=== PATIENT | female | born 1980 | race Caucasian/White ===

== ENCOUNTER 2018-03-06 07:26 | Inpatient (IN) | payer MEDICAID ==
[~2018-03-06] VITALS: Ht 144.8 cm; Wt 83.4 kg
[2018-03-06 07:56] LABS: BASOPHILS % (AUTO) 0.5 % (0.0-2.0); EOSINOPHILS % (AUTO) 0.7 % (1.0-6.0); HEMATOCRIT 36.5 % (36-46); HEMOGLOBIN 12.5 g/dL (12.0-16.0); LYMPHOCYTES # (AUTO) 1.8 K/uL (1.0-4.8); LYMPHOCYTES % (AUTO) 22.5 % (22.0-44.0); MEAN CORPUSCULAR HEMOGLOBIN 28.4 pg (26.0-34.0); MEAN CORPUSCULAR HGB CONC 34.2 G/dL (31.0-37.0); MEAN CORPUSCULAR VOLUME 83 fL (80-100); MONOCYTES # (AUTO) 0.3 K/uL (0.1-1.0); MONOCYTES % (AUTO) 4.3 % (2.0-9.0); NEUTROPHILS # (AUTO) 5.7 K/uL (1.8-7.7); PLATELET COUNT (AUTO) 253 K/uL (150-450); RED BLOOD CELL COUNT(AUTO) 4.39 MIL/uL (4.00-5.20); RED CELL DISTRIBUTION WIDTH 14.2 % (11.5-14.5)
[2018-03-06 08:12] LABS: ANION GAP 10 mmol/L (8-16); CALCIUM, TOTAL 9.2 mg/dL (8.8-10.5); CARBON DIOXIDE 25 mmol/L (22-29); CHLORIDE 102 mmol/L (98-107); CREATININE 0.78 mg/dL (0.60-1.30); GLOMERULAR FILTR. RATE CALC > 60 mL/min (>60); GLUCOSE,RANDOM 112 mg/dL (70-110); POTASSIUM 3.7 mmol/L (3.5-5.1); SODIUM SERUM 137 mmol/L (136-145); UREA NITROGEN, BLOOD 9 mg/dL (7-18)
[2018-03-06 08:23] LABS: SALICYLATE 1.9 mg/dL (2.8-20.0)
[2018-03-06 08:25] LABS: ALANINE AMINOTRANSFERASE 32 U/L (12-78); ALBUMIN 3.5 g/dL (3.4-5.0); ALKALINE PHOSPHATASE 112 U/L (46-116); ASPARTATE AMINOTRANSFERASE 20 U/L (15-37); BILIRUBIN,TOTAL 0.4 mg/dL (0.1-1.0); TOTAL PROTEIN, SERUM 7.5 g/dL (6.4-8.2)
[2018-03-06 08:38] LABS: ACETAMINOPHEN 9 mcg/mL (10-30)
[2018-03-06] MEDS ORDERED: ACETAMINOPHEN 500 MG TABLET PO ONE (09:45)
[2018-03-06 09:52] LABS: AMPHET/METH SCREEN,URINE NEGATIVE (NEGATIVE); BARBITURATE SCREEN, URINE NEGATIVE (NEGATIVE); BENZODIAZEPINES SCREEN,URINE NEGATIVE (NEGATIVE); CANNABINOID SCREEN,URINE NEGATIVE (NEGATIVE); COCAINE SCREEN,URINE NEGATIVE (NEGATIVE); METHADONE SCREEN, URINE NEGATIVE (NEGATIVE); OPIATE SCREEN,URINE NEGATIVE (NEGATIVE)
[2018-03-06 09:55] LABS: PHENCYCLIDINE SCREEN,URINE NEGATIVE (NEGATIVE)
[2018-03-06] MEDS ORDERED: ZOLPIDEM TARTRATE 10 MG TABLET PO PRN (11:30)
[2018-03-06] MEDS ORDERED: LORazepam 2 MG TABLET PO PRN (11:30)
[2018-03-06] MEDS ORDERED: HALOPERIDOL 5 MG TABLET PO PRN (11:30)
[2018-03-06 11:31] VITALS: BP 104/59
[2018-03-06 12:11] LABS: HCG,QUANTITATIVE < 1 mIU/mL (0-6)
[2018-03-06] MEDS ORDERED: IBUPROFEN 600 MG TABLET PO PRN (15:15)
[2018-03-06] MEDS ORDERED: LOPERAMIDE HCL 2 MG CAPSULE PO PRN (15:15)
[2018-03-06] MEDS ORDERED: MAG HYDROX/AL HYDROX/SIMETH ES 30 ML SUSPENSION UDCUP PO PRN (15:15)
[2018-03-06] MEDS ORDERED: MAGNESIUM HYDROXIDE SUSPENSION 30 ML UDCUP PO PRN (15:15)
[2018-03-06] MEDS ORDERED: ACETAMINOPHEN 325 MG TABLET PO PRN (15:15)
[2018-03-06] MEDS ORDERED: PETROLATUM,WHITE 71 GM JELLY TP PRN (15:15)
[2018-03-06] MEDS ORDERED: BACITRACIN 28.4 GM OINTMENT TP PRN (15:15)
[2018-03-06] MEDS ORDERED: CloNIDine HCL 0.1 MG TABLET PO PRN (15:15)
[2018-03-06] MEDS ORDERED: BENZOCAINE/MENTHOL LOZENGE MM PRN (15:15)
[2018-03-06] MEDS ORDERED: ALBUTEROL SULFATE HFA 90 MCG/PUFF 8 GM INHALER IH PRN (15:15)
[2018-03-06] MEDS ORDERED: ONDANSETRON HCL 4 MG TABLET PO PRN (15:15)
[2018-03-06 19:03] VITALS: BP 112/70
[2018-03-06 20:48] VITALS: BP 110/63
[2018-03-07 07:09] VITALS: BP 102/73
[2018-03-07 08:28] VITALS: BP 109/68
[2018-03-07 08:59] LABS: CHOL/HDL RATIO 4.8 (3.9-5.7); FREE T4 (FREE THYROXINE) 0.91 ng/dL (0.76-1.46); THYROID STIMULATING HORMONE 1.07 uIU/mL (0.36-3.74)
[2018-03-07] MEDS ORDERED: DOCUSATE SODIUM 100 MG CAPSULE PO SCH (09:00)
== END 2018-03-07 15:25 | disposition home or self-care (01) | DRG 751 ==
LOC: EMS 07:27 → AHU 10:54 → B2S 18:00
DX: F33.3 Major depressive disorder, recurrent, severe with psychotic symptoms (principal); R45.851 Suicidal ideations; T50.902A Poisoning by unspecified drugs, medicaments and biological substances, intentional self-harm, initial encounter; E66.9 Obesity, unspecified; F17.200 Nicotine dependence, unspecified, uncomplicated; F41.9 Anxiety disorder, unspecified; G47.00 Insomnia, unspecified
CPT/HCPCS: 84439; 84443; 93005; 99285; G0480; G0481